=== PATIENT | female | born 1995 | race African-American/Black ===

== ENCOUNTER 2020-07-01 22:17 | Emergency (ER) | payer OTHER ==
[~2020-07-01] VITALS: Ht 154.9 cm; Wt 142.9 kg
[2020-07-01] MEDS ORDERED: ALBUTEROL2.5 MG/0.1 INH (22:33)
[2020-07-02 01:56] VITALS: BP 122/72
--- NOTE | 2020-07-02 11:37 | EKG ---
[facility] [place] [address] [address] ELECTROCARDIOGRAM REPORT Name: HALLE REYES Room #: [facility]#: [id number] Admission: 07/01/20 Attend Phys: Discharge: 07/02/20 Date of : [birth year] Report #: [id number] THIS REPORT FOR: cc: [facility] - Clinic physician unknown [facility] - Clinic physician unknown Wilmer Escalera MD [facility] ~ THIS REPORT FOR: //name// [facility] ED Test Date: 2020-07-01 Test Time: 22:23:20 Pat Name: HALLE REYES Department: Room: Gender: R And D Lab Technician: [facility] : 1995 Requested By: Leanne Anglin Order Number: [id number] MD: Wilmer Escalera Measurements Intervals [place] Rate: 98 P: 35 W[place]: 146 QRS: 37 QRSD: 95 T: 7 QT: 344 QTc: 440 Interpretive Statements Sinus rhythm Abnormal Q suggests anterior infarct Borderline repolarization abnormality No previous ECG available for comparison Electronically Signed On 07-02-2020 11:36:54 CDT by Wilmer Escalera [email or web address] <ELECTRONICALLY SIGNED> By: Wilmer Escalera MD, FACC 07/02/20 1136 22 22 Wilmer Escalera MD, [facility] /EPI
== END 2020-07-02 01:58 | disposition home or self-care (01) ==
LOC: ER 22:17
DX: R06.02 Shortness of breath (principal); Z20.828 Contact with and (suspected) exposure to other viral communicable diseases; J45.909 Unspecified asthma, uncomplicated; E11.9 Type 2 diabetes mellitus without complications

== ENCOUNTER 2020-07-05 10:45 | Emergency (ER) | payer OTHER ==
[~2020-07-05] VITALS: Ht 152.4 cm; Wt 142.9 kg
[~2020-07-05 10:45] MED LIST: ALBUTEROL2.5 MG/0.1 INH
[2020-07-05 12:34] VITALS: BP 122/74
== END 2020-07-05 12:34 | disposition home or self-care (01) ==
LOC: ER 10:45
DX: R06.02 Shortness of breath (principal); J45.909 Unspecified asthma, uncomplicated; Z79.899 Other long term (current) drug therapy; Z91.09 Other allergy status, other than to drugs and biological substances; Z20.828 Contact with and (suspected) exposure to other viral communicable diseases